=== PATIENT | male | born 1965 | race African-American/Black ===

== ENCOUNTER 2020-06-26 09:17 | Inpatient (IN) | payer BC, OTHER ==
[~2020-06-26] VITALS: Ht 182.9 cm; Wt 127.4 kg
[2020-06-26] MEDS ORDERED: SODIUM CHLORIDE 0.9% 1,000 ML IV ONE (09:45)
[2020-06-26 10:49] LABS: Basophils # (auto) 0 10 ^3/uL (0-0.2); Basophils % (auto) 0.7 % (0.0-2.0); Eosinophils # (auto) 0 10 ^3/uL (0-0.8); Eosinophils % (auto) 0.8 % (0.0-7.0); Hematocrit 38.8 % (41.0-53.0); Hemoglobin 13.2 g/dL (13.5-17.5); Lymphocytes # (auto) 1.5 10 ^3/uL (0.4-5.4); Lymphocytes % (auto) 28.3 % (10.0-50.0); Mean Corpuscular Volume 79.5 fL (80.0-100.0); Monocytes # (auto) 0.4 10 ^3/uL (0-1.3); Monocytes % (auto) 7.6 % (0.0-12.0); Neutrophils # (auto) 3.2 10 ^3/uL (1.6-8.6); Neutrophils % (auto) 62.6 % (37.0-80.0); Nucleated Red Blood Cells % 0.1 %; Red Blood Cells 4.88 10^6/uL (4.5-5.90); Red Cell Distribution Width 12.8 % (11.8-14.3); White Blood Cell 5.1 10^3/uL (4.4-10.8)
[2020-06-26 11:04] LABS: Albumin 3.6 g/dL (3.4-5.0); Calcium 8.4 mg/dL (8.5-10.1); Potassium 3.7 mmol/L (3.5-5.1)
[2020-06-26 11:12] LABS: BUN/Creatinine Ratio 12.2; Bilirubin, Total 0.7 mg/dL (0.2-1.0); Total Protein 7.2 g/dL (6.4-8.2)
[2020-06-26] MEDS ORDERED: SODIUM CHLORIDE 0.9% 1,000 ML IVB ONE (12:45)
[2020-06-26 13:11] LABS: Partial Thromboplastin Time 24.7 sec (23.0-31.2)
[2020-06-26] MEDS ORDERED: DEXTROSE (50%) 50ML SYRG IV PRN (15:00)
[2020-06-26] MEDS ORDERED: NITROGLYCERIN 0.4 MG SL TAB SL PRN (15:00)
[2020-06-26] MEDS ORDERED: hydrALAZINE HCL 20 MG/ML VL IV PRN (15:00)
[2020-06-26] MEDS ORDERED: ONDANSETRON HCL 4 MG/2 ML VIAL IV PRN (15:00)
[2020-06-26] MEDS ORDERED: MORPHINE SULFATE INJECTION 2 MG/ML SYRG IV PRN ×2 (15:00)
[2020-06-26] MEDS ORDERED: HYDROcodone-ACET 5/325MG TAB PO PRN (15:00)
[2020-06-26 15:59] LABS: CRP High Sensitivity 0.16 mg/dL (< 0.3)
[2020-06-26] MEDS: SODIUM CHLORIDE 0.9% 1,000 ML IV SCH (16:00)
[2020-06-26] MEDS: ACCU-CHEK COMFORT CURVE STRIP VI SCH ×2 (17:33→22:00)
[2020-06-26] MEDS: InsuLIN REG 1unit/0.01ml Soln (100units/ml) SC SCH ×2 (17:36→22:25)
[2020-06-26 20:00] VITALS: BP 150/83
[2020-06-26] MEDS: DOCUSATE SOD 100 MG CAP PO SCH (22:22)
[2020-06-26] MEDS: ATORVASTATIN 20 MG TAB PO SCH (22:23)
[2020-06-26] MEDS: METOPROLOL TARTRATE 25 MG TAB PO SCH (22:23)
[2020-06-26] MEDS: ACETAMINOPHEN 500 MG TAB PO PRN (22:39)
[2020-06-27] VITALS (7 sets, daily range): BP systolic 127–173; BP diastolic 79–96
[2020-06-27] MEDS: SODIUM CHLORIDE 0.9% 1,000 ML IV SCH ×3 (01:00→20:11)
[2020-06-27] MEDS ORDERED: AMLO-489 PO (03:45)
[2020-06-27] MEDS ORDERED: LISI40TA11 PO (03:47)
[2020-06-27] MEDS ORDERED: TRAZ-181 PO (03:47)
[2020-06-27] MEDS: InsuLIN REG 1unit/0.01ml Soln (100units/ml) SC SCH ×4 (06:39→21:54)
[2020-06-27] MEDS: ACCU-CHEK COMFORT CURVE STRIP VI SCH ×4 (06:43→21:56)
[2020-06-27 06:58] LABS: Eosinophils # (auto) 0.1 10 ^3/uL (0-0.8); Hemoglobin 13.3 g/dL (13.5-17.5); Nucleated Red Blood Cells % 0.1 %
[2020-06-27 07:01] LABS: Basophils # (auto) 0 10 ^3/uL (0-0.2); Basophils % (auto) 0.4 % (0.0-2.0); Eosinophils % (auto) 1.8 % (0.0-7.0); Hematocrit 39.6 % (41.0-53.0); Lymphocytes # (auto) 2.1 10 ^3/uL (0.4-5.4); Lymphocytes % (auto) 37.3 % (10.0-50.0); Mean Corpuscular Hemoglobin 26.7 pg (28.0-32.0); Mean Corpuscular Hgb Conc. 33.5 g/dL (32.0-36.0); Mean Corpuscular Volume 79.7 fL (80.0-100.0); Monocytes # (auto) 0.4 10 ^3/uL (0-1.3); Monocytes % (auto) 7.6 % (0.0-12.0); Neutrophils % (auto) 52.9 % (37.0-80.0); Red Blood Cells 4.97 10^6/uL (4.5-5.90); Red Cell Distribution Width 12.9 % (11.8-14.3); White Blood Cell 5.7 10^3/uL (4.4-10.8)
[2020-06-27 07:10] LABS: INR 1.01 (0.9-1.15); Partial Thromboplastin Time 24.8 sec (23.0-31.2)
[2020-06-27 07:18] LABS: Potassium 3.3 mmol/L (3.5-5.1)
[2020-06-27 07:31] LABS: Calcium 8.3 mg/dL (8.5-10.1)
[2020-06-27] MEDS: DOCUSATE SOD 100 MG CAP PO SCH ×2 (08:30→21:48)
[2020-06-27] MEDS: ASPirin-EC 81 mg tab PO SCH (08:30)
[2020-06-27] MEDS: LISINOPRIL 10 MG TAB PO SCH (08:30)
[2020-06-27] MEDS: FAMOTIDINE 20 MG TAB PO SCH (08:30)
[2020-06-27] MEDS ORDERED: ADENOSINE 93 MG in GIVE UN-DILUTED 0 ML IV STA (09:00)
[2020-06-27] MEDS: METOPROLOL TARTRATE 25 MG TAB PO SCH ×2 (09:43→21:52)
[2020-06-27] MEDS ORDERED: POTASSIUM CHL 20 Meq TABLET PO ONE (12:15)
[2020-06-27] MEDS ORDERED: cloNIDine HCL 0.1 MG TAB PO PRN (12:30)
[2020-06-27] MEDS: ATORVASTATIN 20 MG TAB PO SCH (21:49)
[2020-06-27] MEDS: traZODone HCL 50 MG TAB PO SCH (21:49)
[2020-06-28 05:00] VITALS: BP 141/71
[2020-06-28] MEDS: InsuLIN REG 1unit/0.01ml Soln (100units/ml) SC SCH ×4 (06:30→21:39)
[2020-06-28] MEDS: ACCU-CHEK COMFORT CURVE STRIP VI SCH ×4 (06:30→21:42)
[2020-06-28] MEDS: SODIUM CHLORIDE 0.9% 1,000 ML IV SCH ×2 (07:00→17:00)
[2020-06-28 07:23] LABS: Basophils # (auto) 0.1 10 ^3/uL (0-0.2); Basophils % (auto) 1.1 % (0.0-2.0); Eosinophils # (auto) 0.1 10 ^3/uL (0-0.8); Eosinophils % (auto) 1.5 % (0.0-7.0); Hematocrit 41.5 % (41.0-53.0); Lymphocytes # (auto) 1.9 10 ^3/uL (0.4-5.4); Lymphocytes % (auto) 32.5 % (10.0-50.0); Mean Corpuscular Hemoglobin 27.2 pg (28.0-32.0); Mean Corpuscular Hgb Conc. 33.7 g/dL (32.0-36.0); Mean Corpuscular Volume 80.8 fL (80.0-100.0); Monocytes # (auto) 0.5 10 ^3/uL (0-1.3); Monocytes % (auto) 7.9 % (0.0-12.0); Neutrophils # (auto) 3.4 10 ^3/uL (1.6-8.6); Red Blood Cells 5.13 10^6/uL (4.5-5.90); Red Cell Distribution Width 12.9 % (11.8-14.3); White Blood Cell 5.9 10^3/uL (4.4-10.8)
[2020-06-28 07:26] LABS: BUN/Creatinine Ratio 9.8; Calcium 8.4 mg/dL (8.5-10.1); Potassium 3.7 mmol/L (3.5-5.1)
[2020-06-28 07:35] LABS: Partial Thromboplastin Time 25.3 sec (23.0-31.2)
[2020-06-28] MEDS: ASPirin-EC 81 mg tab PO SCH (08:59)
[2020-06-28] MEDS: DOCUSATE SOD 100 MG CAP PO SCH ×2 (08:59→21:42)
[2020-06-28 09:00] VITALS: BP 120/73
[2020-06-28] MEDS: LISINOPRIL 10 MG TAB PO SCH (09:00)
[2020-06-28] MEDS: FAMOTIDINE 20 MG TAB PO SCH (09:00)
[2020-06-28] MEDS: METOPROLOL TARTRATE 25 MG TAB PO SCH ×2 (09:00→21:42)
[2020-06-28 13:00] VITALS: BP 126/83
[2020-06-28] MEDS ORDERED: fentaNYL CITRATE 100 MCG/2 ML VL ONE (13:47)
[2020-06-28] MEDS ORDERED: HEPARIN SODIUM (PORCINE) 5000 UNITS/ML 1ML VIAL ONE (13:47)
[2020-06-28] MEDS ORDERED: ANGIOMAX 250 MG VIAL IV ONE (13:47)
[2020-06-28] MEDS ORDERED: VERAPAMIL 2.5MG/ML INJ 2ML VIAL IV ONE (13:47)
[2020-06-28] MEDS ORDERED: SODIUM CHL 0.9% 0 ML ONE (13:48)
[2020-06-28] MEDS ORDERED: LIDOCAINE 2%HCL (LOCAL ANESTH.) INJ 20ML MDV ONE (13:48)
[2020-06-28] MEDS ORDERED: MIDAZOLAM HCL 2MG/2ML 2ml VIAL (1mg/ml) ONE (13:48)
[2020-06-28 17:00] VITALS: BP 126/80
[2020-06-28] MEDS: ATORVASTATIN 20 MG TAB PO SCH (21:41)
[2020-06-28] MEDS: traZODone HCL 50 MG TAB PO SCH (21:41)
[2020-06-28 22:27] VITALS: BP 144/78
[2020-06-29] MEDS: ACETAMINOPHEN 500 MG TAB PO PRN
[2020-06-29] MEDS: SODIUM CHLORIDE 0.9% 1,000 ML IV SCH (03:00)
[2020-06-29 05:36] VITALS: BP 108/63
[2020-06-29] MEDS: InsuLIN REG 1unit/0.01ml Soln (100units/ml) SC SCH ×2 (06:13→11:53)
[2020-06-29] MEDS: ACCU-CHEK COMFORT CURVE STRIP VI SCH ×2 (06:16→11:52)
[2020-06-29 08:00] VITALS: BP 126/84
[2020-06-29] MEDS: DOCUSATE SOD 100 MG CAP PO SCH (09:24)
[2020-06-29] MEDS: LISINOPRIL 10 MG TAB PO SCH (09:25)
[2020-06-29] MEDS: ASPirin-EC 81 mg tab PO SCH (09:25)
[2020-06-29] MEDS: FAMOTIDINE 20 MG TAB PO SCH (09:25)
[2020-06-29] MEDS: METOPROLOL TARTRATE 25 MG TAB PO SCH (10:00)
[2020-06-29 10:23] VITALS: BP 126/84
== END 2020-06-29 12:40 | disposition home or self-care (01) | DRG 287 ==
LOC: ER 09:17 → TELE 09:18 → DOU IN ADS 06-27 09:21
PROVIDERS: ADMIT Nurse Practitioner Acute Care; ATTEND Family Medicine
PROC: 4A023N7 Measurement of Cardiac Sampling and Pressure, Left Heart, Percutaneous Approach (ICD-10-PCS; principal; 2020-06-28)
PROC: B211YZZ Fluoroscopy of Multiple Coronary Arteries using Other Contrast (ICD-10-PCS; 2020-06-28)
PROC: B215YZZ Fluoroscopy of Left Heart using Other Contrast (ICD-10-PCS; 2020-06-28)
DX: I24.9 Acute ischemic heart disease, unspecified (principal); E66.9 Obesity, unspecified; E11.65 Type 2 diabetes mellitus with hyperglycemia; E78.5 Hyperlipidemia, unspecified; E86.0 Dehydration; E87.6 Hypokalemia; Z20.822 Contact with and (suspected) exposure to COVID-19; I25.10 Atherosclerotic heart disease of native coronary artery without angina pectoris; I10 Essential (primary) hypertension; Z82.49 Family history of ischemic heart disease and other diseases of the circulatory system; Z83.3 Family history of diabetes mellitus; Z68.33 Body mass index [BMI] 33.0-33.9, adult
CPT/HCPCS: 36415; 70450; 71045; 78452; 80048; 80053; 80061; 82962; 83036; 83735; 83880; 84443; 84484; 85025; 85610; 85730; 86141; 86850; 86900; 86901; 87426; 93005; 93017; 93306; 93458; 93971; 99152; G0378; J0153; J1815; J2250